=== PATIENT | female | born 2000 | race Caucasian/White ===

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

== ENCOUNTER 2018-02-04 23:27 | Emergency (ER) | payer OTHER ==
[~2018-02-04] VITALS: Ht 167.6 cm; Wt 63.9 kg
[2018-02-04 23:37] VITALS: BP 137/83
[2018-02-04] MEDS ORDERED: LIDOCAINE-MPF 1%, 2ML ONE (23:57)
[2018-02-05] MEDS ORDERED: LIDOCAINE-MPF 1%, 2ML INFIL ONE
[2018-02-05] MEDS ORDERED: BACITRACIN ZINC OINT 500U/GM, 0.9 GM ONE (00:59)
== END 2018-02-05 01:14 | disposition home or self-care (01) ==
LOC: ED 23:59
DX: S61.216A Laceration without foreign body of right little finger without damage to nail, initial encounter (principal); W45.8XXA Other foreign body or object entering through skin, initial encounter; Y93.E9 Activity, other interior property and clothing maintenance; Y99.0 Civilian activity done for income or pay; Y92.69 Other specified industrial and construction area as the place of occurrence of the external cause
CPT/HCPCS: 12041; 99284

== ENCOUNTER → 2018-05-27 | Outpatient (CLI) | payer OTHER | END | disposition home or self-care (01) | LOC: CFH 08:12 | PROVIDERS: ATTEND Nurse Practitioner Family | DX: N63.24 Unspecified lump in the left breast, lower inner quadrant (principal); Z80.3 Family history of malignant neoplasm of breast ==

== ENCOUNTER 2021-04-10 22:18 | Emergency (ER) | payer OTHER ==
[~2021-04-10] VITALS: Ht 167.6 cm; Wt 55.7 kg
[~2021-04-10 22:18] MED LIST: NONE PER PT
[2021-04-10 23:32] VITALS: BP 136/80
[2021-04-10] MEDS ORDERED: FAMOTIDINE 20 MG/2 ML ONE (23:53)
[2021-04-10] MEDS ORDERED: ONDANSETRON 2MG/ML, 2ML ONE (23:53)
[2021-04-10 23:55] LABS: BASOPHILS % (AUTO) 0 % (0-1); EOSINOPHILS % (AUTO) 1 % (1-7); LYMPHOCYTES % (AUTO) 25 % (22-44); MEAN CORPUSCULAR HEMOGLOBIN 29.1 pg (27.0-34.8); MEAN CORPUSCULAR HGB CONC 33.4 g/dL (32.4-35.8); MEAN PLATELET VOLUME 9.5 fL (7.4-10.4); MONOCYTES % (AUTO) 7 % (2-9); NEUTROPHILS % (AUTO) 68 % (42-75); PLATELET COUNT 269 x10^3/uL (130-400); RED BLOOD COUNT 4.63 x10^6/uL (3.82-5.3); RED CELL DISTRIBUTION WIDTH 12.9 % (9.6-15.2)
[2021-04-11] MEDS ORDERED: ONDANSETRON 2MG/ML, 2ML IVPush ONE
[2021-04-11] MEDS ORDERED: FAMOTIDINE 20 MG/2 ML IVPush ONE
[2021-04-11] MEDS ORDERED: SODIUM CHLORIDE FLUSH 10ML SYR IVF ONE
[2021-04-11 00:07] LABS: ALANINE AMINOTRANSFERASE 28 U/L (12-78); ALBUMIN 3.6 g/dL (3.4-5.0); ANION GAP 7 mmol/L (5-15); CALCIUM 8.6 mg/dL (8.5-10.1); CHLORIDE 108 mmol/L (98-107); CREATININE 0.67 mg/dL (0.55-1.02)
[2021-04-11 00:12] LABS: ALKALINE PHOSPHATASE 73 U/L (45-117); BILIRUBIN,TOTAL 0.5 mg/dL (0.2-1.0); TOTAL PROTEIN 7.5 g/dL (6.4-8.2)
[2021-04-11 00:48] LABS: MICROSCOPIC INDICATED
== END 2021-04-11 01:22 | disposition home or self-care (01) ==
LOC: ED 23:59
DX: R10.84 Generalized abdominal pain (principal); R11.2 Nausea with vomiting, unspecified
CPT/HCPCS: 36415; 74021; 80053; 81001; 83690; 84703; 85025; 87086; 96374; 96375; 99284; J2405